=== PATIENT | male | born 1975 | race Caucasian/White ===

== ENCOUNTER 2017-03-10 21:33 | Emergency (ER) | payer OTHER ==
[2017-03-10 22:49] VITALS: BP 141/87
[2017-03-10] MEDS ORDERED: HYDROmorphone 1 MG/ML Syringe IM ONE (23:27)
[2017-03-10] MEDS ORDERED: Alum Hydrox/Mag Hydrox/Simeth 15 ML, Lidocaine 2% 15 ML PO ONE ×2 (23:29)
--- NOTE | 2017-03-10 23:30 | EDM.PDOC ---
ED HPI GENERAL MEDICAL PROBLEM - General Chief Complaint: Abdominal Pain Stated Complaint: STOMACH PAIN 1 WEEK/POSSIBLE FEVER Time Seen by Provider: 03/10/17 23:22 Source of Information: Reports: Patient, RN Notes Reviewed History Limitations: Reports: No Limitations - History of Present Illness INITIAL COMMENTS - FREE TEXT/NARRATIVE: 41-year-old gentleman presents emergency department day complaint of epigastric pain, he states is been ongoing for the last week or so however the last 3 days have been worse, he states the pain gets significantly worse with food he also develops some diarrhea after eating denies any blood in the stool no fevers nausea vomiting no history of abdominal surgeries Upper Abdomen Pain Score (Numeric/FACES): 6 - Related Data Allergies Allergy/AdvReac Type Severity Reaction Status Date / Time No Known Allergies Allergy Verified 03/10/17 23:10 Home Meds: Home Meds Acetaminophen/Caffeine [Excedrin Tension Headache] 1 tab PO ASDIRECTED PRN 03/10 [History] Past Medical History Gastrointestinal History: Reports: Other (See Below) Other Gastrointestinal History: similar symptoms 1 mo ago Musculoskeletal History: Reports: Fracture Other Musculoskeletal History: foot Neurological History: Reports: Migraines - Infectious Disease History Infectious Disease History: Reports: Chicken Pox - Past Surgical History GI Surgical History: Reports: None Social & Family History - Tobacco Use Smoking Status *Q: Never Smoker - Caffeine Use Caffeine Use: Reports: Coffee, Energy Drinks, Soda - Recreational Drug Use Recreational Drug Use: No ED ROS GENERAL - Review of Systems Review Of Systems: See Below Constitutional: Reports: No Symptoms Respiratory: Reports: No Symptoms Cardiovascular: Reports: No Symptoms GI/Abdominal: Reports: Abdominal Pain, Diarrhea. Denies: Nausea, Vomiting : Reports: No Symptoms Musculoskeletal: Reports: No Symptoms Skin: Reports: No Symptoms ED EXAM, GI/ABD - Physical Exam Exam: See Below Text/Narrative:: General: Male, not in any distress, alert and oriented x3 HEENT: head is atraumatic normocephalic, eyes pupils equal round reactive to light, sclera clear no conjunctivitis appreciated. Ears tympanic membranes clear and todd landmarks and light reflex are present bilaterally canals are clear. Nose no septal deviation, nares are clear, no blood present. Mouth mucosa is moist and pink no erythema or exudate noted in soft palate, tongue is midline uvula is midline, dentition is intact. Neck: Supple no thyromegaly no tracheal deviation. Nodes: Cervical nodes subclavicular nodes nontender no palpable lymphadenopathy noted. Lungs: clear to auscultation bilaterally with symmetrical respirations, no adventitious noise appreciated. CV: Regular rate and rhythm S1 and S2 appreciated no murmurs rubs or gallops noted. Abdomen: Soft, tender to mild palpation in epigastric region, no palpable masses or organomegaly appreciated, no distention no guarding bowel sounds are present, . Neuro: Cranial nerves II through XII grossly intact Skin: Warm and dry, intact Extremities: No lower extremity edema appreciated, Course - Vital Signs Last Recorded V/S: Last Vital Signs Temp 99.7 F 03/10/17 23:07 Pulse 71 03/10/17 23:07 Resp 16 03/10/17 23:07 BP 141/87 H 03/10/17 23:07 Pulse Ox 97 03/10/17 23:07 - Orders/Labs/Meds Orders: Active Orders 24 hr Category Date Time Status Abdomen Ltd [US] Urgent Exams 03/10/17 23:27 Taken Labs: Laboratory Tests 03/10/17 03/10/17 03/10/17 Range/Units 00:04 23:50 23:50 WBC 11.1 H (4.5-11.0) K/uL RBC 5.75 (4.30-5.90) M/uL Hgb 17.5 H (12.0-15.0) g/dL Hct 47.6 (40.0-54.0) % MCV 83 (80-98) fL MCH 30 (27-31) pg MCHC 37 H (32-36) % Plt Count (150-400) K/uL Neut % (Auto) 77 H (36-66) % Lymph % (Auto) 15 L (24-44) % [place] % (Auto) 6 (2-6) % Eos % (Auto) 1 L (2-4) % Baso % (Auto) 0 (0-1) % Sodium 136 L (140-148) mmol/L Potassium 3.7 (3.6-5.2) mmol/L Chloride 100 (100-108) mmol/L Carbon Dioxide 26 (21-32) mmol/L Anion Gap 13.7 (5.0-14.0) mmol/L BUN 9 (7-18) mg/dL Creatinine 1.0 (0.8-1.3) mg/dL Est Cr Clr Drug Dosing 101.39 mL/min Estimated GFR (MDRD) > 60 (>60) Glucose 123 H (74-106) mg/dL Calcium 9.3 (8.5-10.1) mg/dL Total Bilirubin 0.7 (0.2-1.0) mg/dL AST 20 (15-37) U/L ALT 26 (12-78) U/L Alkaline Phosphatase 83 (46-116) U/L Troponin I < 0.017 (0.000-0.056) ng/mL Total Protein 8.7 H (6.4-8.2) g/dL Albumin 4.2 (3.4-5.0) g/dL Globulin 4.5 H (2.3-3.5) g/dL Albumin/Globulin Ratio 0.9 L (1.2-2.2) Lipase 264 (73-393) U/L Urine Color Yellow Urine Appearance Clear Urine pH 6.5 (4.5-8.0) Ur Specific [place] 1.015 (1.008-1.030) Urine Protein Negative (NEGATIVE) mg/dL Urine Glucose (UA) Normal (NEGATIVE) mg/dL Urine Ketones 15 H (NEGATIVE) mg/dL Urine Occult Blood Negative (NEGATIVE) Urine Nitrite Negative (NEGAITVE) Urine Bilirubin Negative (NEGATIVE) Urine Urobilinogen Normal (NORMAL) mg/dL Ur Leukocyte Esterase Negative (NEGATIVE) Urine RBC 0-5 (0-5) Urine WBC 0-5 (0-5) Ur Epithelial Cells Rare Amorphous Sediment Not seen Urine Bacteria Few Urine Mucus Not seen Meds: Medications Discontinued Medications Generic Name Dose Route Start Last Admin Trade Name Freq PRN Reason Stop Dose Admin Al Hydroxide/Mg Hydroxide 15 0 ml 03/10/17 23:29 03/10/17 23:40 ml/ Lidocaine HCl 15 ml PO 03/10/17 23:30 30 ml ONETIME ONE Administration Hydromorphone HCl 1 mg 03/10/17 23:27 03/10/17 23:42 Dilaudid IM 03/10/17 23:28 1 mg ONETIME ONE Administration Departure - Departure Time of Disposition: 01:14 Disposition: Home, Self-Care 01 Condition: Good Clinical Impression: Cholelithiasis Qualifiers: Cholelithiasis location: gallbladder Cholecystitis presence: without cholecystitis Biliary obstruction: without biliary obstruction Qualified Code(s) : K80.20 - Calculus of gallbladder without cholecystitis without obstruction - Discharge Information Forms: ED Department Discharge Additional Instructions: Use hydrocodone as needed for pain control, please call the clinic in the morning for an appointment with general surgery - My Orders Last 24 Hours: My Active Orders 03/10/17 23:27 Abdomen Ltd [US] Urgent - Assessment/Plan Last 24 Hours: My Active Orders 03/10/17 23:27 Abdomen Ltd [US] Urgent Plan: Assessment Acuity = acute Site and laterality = cholelithiasis Etiology = probably diet related Manifestations = epigastric pain Location of injury = Home Lab values = CBC within normal limits sodium low at 136 consistent hyponatremia remainder of metabolic panel is within normal limits ultrasound demonstrates cholelithiasis and fatty infiltration of liver Plan I did review lab work and ultrasound results with him to set him up for the consult with general surgery tomorrow or further evaluation, hydrocodone total # 10 provided for pain, recommend bland diet Patient was in agreement with the plan all questions were answered, they were instructed to return to the emergency department or call for worsening symptoms. This note was dictated using [employer] voice recognition software please call with any questions.
== END 2017-03-11 01:26 | disposition home or self-care (01) ==
LOC: JP.ED 21:33
DX: K80.20 Calculus of gallbladder without cholecystitis without obstruction (principal)
CPT/HCPCS: 36415; 76705; 80053; 81001; 83690; 84484; 85025; 96372; 99284; A9270; J1170

== ENCOUNTER 2017-03-20 10:35 | Day surgery (SDC) | payer OTHER ==
[~2017-03-20 10:35] MED LIST: Bupivacaine 0.5% 50 ML MDV ONE; Lidocaine 1% with EPINEPHrine 1:100,000 50 ML MDV ONE
[2017-03-20] MEDS: Dextrose 5%-Lactated Ringers 1,000 ML IV SCH ×2 (11:19→16:11)
[2017-03-20] MEDS ORDERED: Rocuronium 50 MG/5 ML Vial ONE (12:54)
[2017-03-20] MEDS ORDERED: Propofol 200 MG/20 ML SDV ONE (12:54)
[2017-03-20] MEDS ORDERED: Dexamethasone 4 MG/ML SDV ONE (12:54)
[2017-03-20] MEDS ORDERED: Ondansetron 4 MG/2 ML SDV ONE (12:54)
[2017-03-20] MEDS ORDERED: Succinylcholine 200 MG/10 ML MDV ONE (12:54)
[2017-03-20] MEDS ORDERED: Neostigmine Methylsulfate 1 MG/ML 5 ML Syringe ONE (12:54)
[2017-03-20] MEDS ORDERED: Glycopyrrolate 0.2 MG/ML 5 ML MDV ONE (12:54)
[2017-03-20] MEDS ORDERED: Naloxone 0.4 MG/ML SDV IVPUSH PRN (13:06)
[2017-03-20] MEDS ORDERED: HYDROmorphone/Normal Saline 15 MG/30 ML PCA IV PRN (13:06)
[2017-03-20] MEDS ORDERED: cefOXitin 2 GM in Sodium Chloride 0.9% 50 ML IV ONE (13:15)
[2017-03-20] MEDS ORDERED: hydrOXYzine HCl 100 MG/2 ML SDV IM PRN (14:49)
[2017-03-20] MEDS ORDERED: Ondansetron 4 MG/2 ML SDV IVPUSH PRN (14:49)
[2017-03-20] MEDS: Docusate Sodium 100 MG Cap PO SCH (22:09)
[2017-03-21] MEDS: Dextrose 5%-Lactated Ringers 1,000 ML IV SCH (02:12)
[2017-03-21 05:14] VITALS: BP 110/82
[2017-03-21] MEDS ORDERED: Acetaminophen/HYDROcodone 325-5 MG Tab PO PRN (06:43)
--- NOTE | 2017-03-21 06:54 | PCM.DCSUM1 ---
Discharge Summary - Hospital Course Free Text/Narrative:: This 41 year old white male presented to the ER last week complaining of abdominal pain. He was found to have cholelithiasis and was scheduled for a laparoscopic cholecystectomy on March 20, 2017. His LFT's were normal pre- operatively. He received Mefoxin 2 gms IV pre-operatively. He had multiple stones in his gall bladder and a large cystic duct requiring a stapler to close. He doing doing well post operatively and is ready for discharge. His LIFT's are elevated with a total bilirubin of 1.3 and a d. bili of 0.51. We will follow this. He will be discharged to home today in good condition with LFT check tomorrow. Brief History: See above narrative. - Discharge Data Discharge Date: 03/21/17 Discharge Disposition: Home, Self-Care 01 Condition: Good - Patient Summary/Data Operative Procedure(s) Performed: See above narrative. Consults: Consultations 03/20/17 14:49 Respiratory Care Assess and Treatment [CONS] Routine Comment: Physician Instructions: Hospital Course: See above narrative. - Patient Instructions Diet: Usual Diet as Tolerated Activity: No Strenuous Activities (For two weeks. ) Driving: Do Not Drive Showering/Bathing: May Shower, No Tub Bathing/Swimming Notify Provider of: Fever, Increased Pain, Swelling and Redness, Drainage, Nausea and/or Vomiting - Discharge Plan Prescriptions/Med Rec: Hydrocodone/Acetaminophen [Hydrocodon-Acetaminophen 5-325] 1 - 2 each PO Q6H PRN #30 tablet PRN Reason: Pain Home Medications: Home Meds Docusate Sodium [Colace] 100 mg PO BID cap 03/21/17 [Rx] Hydrocodone/Acetaminophen [Hydrocodon-Acetaminophen 5-325] 1 - 2 each PO Q6H PRN #30 tablet 03/21/17 [Rx] Referrals: Bhavik Aj MD [Physician] - (Wednesday March 22, 2017 for liver profile. ) - Discharge Summary/Plan Comment DC Time >30 min.: Yes Discharge Summary/Plan Comment: See above narrative. - Patient Data Vitals - Most Recent: Last Vital Signs Temp 98.6 F 03/21/17 05:12 Pulse 97 03/21/17 05:12 Resp 18 03/21/17 05:12 BP 110/82 03/21/17 05:12 Pulse Ox 94 L 03/21/17 06:25 Weight - Most Recent: 203 lb 7.787 oz I&O - Last 24 hours: Intake & Output 03/20/17 03/20/17 03/21/17 14:59 22:59 06:59 Intake Total 2589 2140 Output Total 625 Balance 2589 1515 Lab Results - Last 24 hrs: Laboratory Results - last 24 hr 03/20/17 03/21/17 03/21/17 Range/Units 17:58 04:30 04:30 WBC 12.1 H 17.0 H (4.5-11.0) K/uL RBC 5.27 4.97 (4.30-5.90) M/uL Hgb 15.4 H D 15.0 (12.0-15.0) g/dL Hct 46.3 44.1 (40.0-54.0) % MCV 88 89 (80-98) fL MCH 29 30 (27-31) pg MCHC 33 34 (32-36) % Plt Count 221 213 (150-400) K/uL Total Bilirubin 1.3 H D (0.2-1.0) mg/dL Direct Bilirubin 0.51 H (0.0-0.2) mg/dL Indirect Bilirubin 0.79 AST 63 H D (15-37) U/L ALT 260 H (12-78) U/L Alkaline Phosphatase 193 H D (46-116) U/L Total Protein 7.3 (6.4-8.2) g/dL Albumin 3.4 (3.4-5.0) g/dL Globulin 3.9 H (2.3-3.5) g/dL Albumin/Globulin Ratio 0.9 L (1.2-2.2) MASOUD Results - Last 24 hrs: Microbiology 03/20/17 15:05 Gram Stain - Final Gallbladder Fluid - Bile Med Orders - Current: Current Medications Hydrocodone Bitart/Acetaminophen ([place] 325-5 Mg) 1 - 2 tab PO Q4H PRN PRN Reason: Abdominal Pain Docusate Sodium (Colace) 100 mg PO BID TITA Last Admin: 03/20/17 22:09 Dose: 100 mg Hydromorphone HCl (Dilaudid Dry Chain Operator 15 Mg In Ns 30 Ml) 0 mg IV ASDIRECTED PRN; Protocol PRN Reason: Pain Last Admin: 03/20/17 14:02 Dose: 15 mg Hydroxyzine HCl (Vistaril) 50 mg IM Q4H PRN PRN Reason: Nausea Dextrose/Lactated Ringer's (Dextrose 5%-Lactated Ringers) 1,000 mls @ 100 mls/ hr IV ASDIRECTED [facility] Last Admin: 03/21/17 02:12 Dose: 100 mls/hr Naloxone HCl (Narcan) 0.4 mg IVPUSH Q2M PRN PRN Reason: Respiratory Distress Ondansetron HCl (Zofran) 4 mg IVPUSH Q6H PRN PRN Reason: Nausea/Vomiting Discontinued Medications Bupivacaine HCl (Marcaine 0.5%) Confirm Administered Dose 50 ml .ROUTE .STK-MED ONE Stop: 03/20/17 07:00 Last Admin: 03/20/17 14:27 Dose: 20 ml Dexamethasone (Dexamethasone) Confirm Administered Dose 4 mg .ROUTE .STK-MED ONE Stop: 03/20/17 12:55 Fentanyl Citrate (Fentanyl 0.05 Mg/Ml Vial) Confirm Administered Dose 50 mcg .ROUTE .STK-MED ONE Stop: 03/20/17 12:55 Glycopyrrolate (Robinul) Confirm Administered Dose 1 mg .ROUTE .STK-MED ONE Stop: 03/20/17 12:55 Cefoxitin Sodium 2 gm/ Sodium (Chloride) 50 mls @ 100 mls/hr IV ONETIME ONE Stop: 03/20/17 13:44 Last Admin: 03/20/17 13:12 Dose: 100 mls/hr Lidocaine/Epinephrine (Xylocaine 1% With Epinephrine 1:100,000) Confirm Administered Dose 50 ml .ROUTE .STK-MED ONE Stop: 03/20/17 07:00 Last Admin: 03/20/17 14:27 Dose: 20 ml Neostigmine Methylsulfate (Neostigmine) Confirm Administered Dose 5 mg .ROUTE .STK-MED ONE Stop: 03/20/17 12:55 Ondansetron HCl (Zofran) Confirm Administered Dose 4 mg .ROUTE .STK-MED ONE Stop: 03/20/17 12:55 Propofol (Diprivan 20 Ml) Confirm Administered Dose 200 mg .ROUTE .STK-MED ONE Stop: 03/20/17 12:55 Rocuronium Basalt (Zemuron) Confirm Administered Dose 50 mg .ROUTE .STK-MED ONE Stop: 03/20/17 12:55 Succinylcholine Chloride (Quelicin) Confirm Administered Dose 200 mg .ROUTE .STK -MED ONE Stop: 03/20/17 12:55 *Q Meaningful Use (DIS) - VTE *Q VTE Criteria *Q: - Stroke *Q Stroke Criteria *Q: - AMI *Q AMI Criteria *Q:
[2017-03-21] MEDS: Docusate Sodium 100 MG Cap PO SCH (08:17)
--- NOTE | 2017-03-21 08:38 | OR ---
DATE OF PROCEDURE: 03/20/2017 PREOPERATIVE DIAGNOSIS: Chronic cholecystitis with cholelithiasis. POSTOPERATIVE DIAGNOSIS: Chronic cholecystitis with cholelithiasis. PROCEDURE: Laparoscopic cholecystectomy. ANESTHESIA: General endotracheal. INDICATION: This 41-year-old white male presented to the emergency room last week with upper abdominal pain radiating into his back. He had some nausea. He was found on ultrasound to have cholelithiasis. There was no ductal dilatation. Liver functions were unremarkable save for a slightly elevated total protein at 4.5. He is admitted today for a laparoscopic cholecystectomy. He says he has been feeling fine, no pain in the last several days. I counseled him for a laparoscopic cholecystectomy including risks and alternatives, and he gave his informed consent to proceed. He has had no prior abdominal surgery. DESCRIPTION OF PROCEDURE: After adequate general endotracheal anesthesia was obtained, the patient's abdomen was prepped and draped in the usual sterile fashion. Time-out was held. The leg compression stockings were in place and used during the entire procedure. An infraumbilical semicircular incision was made. Under direct vision, a 12 mm port was introduced into the abdomen through this incision using the Optiview technique. The camera was introduced into the abdomen and the abdomen was insufflated to a pressure of 15 mmHg with carbon dioxide. No evidence of intraabdominal injury was seen. Under direct vision, a 12 mm port was placed in the epigastrium and a 5 mm port was placed in the right lower quadrant. The gallbladder was examined and was noted to be a grayish white color consistent with chronic cholecystitis. There was some adhesions to it which were dissected free. The cystic duct and arteries were dissected free. The cystic duct was noted to be too large to place clips across it. It was then divided with the endoscopic LUIS F using a white load. The cystic artery was clipped once distally and a couple of times proximally and divided between clips. The gallbladder was then dissected free from the gallbladder bed using Bovie electrocautery. The gallbladder was placed in a sample retrieval bag and elevated up through the anterior abdominal wall via the epigastric port site. The epigastric port was reintroduced back into the abdomen. The gallbladder bed was irrigated and cauterized to achieve hemostasis. There was no obvious bleeding but a slight ooze, we decided to place Surgicel over the site. Surgicel was then placed in the gallbladder fossa , all of them looked well. The epigastric fascial defect was closed with 0 Vicryl suture using the fascial closure device. The infraumbilical port was removed with a figure-of- eight stitch of 0 Vicryl used to close this fascial defect. We evacuated as much CO2 from the abdomen as we could via the 5 mm port site in the right lower quadrant and then this port was removed. Lidocaine 1% with epinephrine in a 50:50 mix with 0.5% Marcaine was infiltrated about all incisions. The skin incisions were then closed with subcuticular stitches of 4- 0 Vicryl. Dermabond was applied. The anesthesia was reversed. He was extubated and brought to recovery room in good condition. Bhavik Aj MD /[id number] MTDD
== END 2017-03-21 10:00 | disposition home or self-care (01) ==
LOC: JP.SDS 10:35 → JP.MS 15:20 → JP.SDS 03-21 10:00
PROVIDERS: ATTEND Surgery
DX: K80.10 Calculus of gallbladder with chronic cholecystitis without obstruction (principal)
CPT/HCPCS: 36415; 47562; 80076; 85027; 87070; 87075; 87205; 88304; 94762; A9270; J0330; J0694; J1100; J1170; J2405; J2704; J3010; J7042; J7050

== ENCOUNTER 2023-07-30 11:28 | Emergency (ER) | payer OTHER ==
[2023-07-30 11:51] VITALS: BP 135/91; PULSE 98
[2023-07-30] MEDS ORDERED: Sodium Chloride 0.9% 10 ML Syringe FLUSH PRN (12:18)
[2023-07-30] MEDS ORDERED: Sodium Chloride 0.9% 1,000 ML IV ONE (12:18)
[2023-07-30 12:40] LABS: BASOPHILS ABSOLUTE AUTO 0.05 K/uL (0.00-0.10); BASOPHILS PERCENT AUTO 0.6 % (0.1-1.3); EOSINOPHILS ABSOLUTE AUTO 0.24 K/uL (0.00-0.40); EOSINOPHILS PERCENT AUTO 2.7 % (0.0-5.4); HEMATOCRIT 49.7 % (38.4-49.7); IMMATURE GRAN ABSOLUTE AUTO 0.04 K/uL (0.00-0.23); IMMATURE GRAN PERCENT AUTO 0.5 % (0.0-0.7); LYMPHOCYTES ABSOLUTE AUTO 2.73 K/uL (0.8-3.3); LYMPHOCYTES PERCENT AUTO 31.1 % (11.4-47.7); MEAN CORPUSCULAR HEMOGLOBIN 30.8 pg (31.6-35.5); MEAN CORPUSCULAR HGB CONC 36.2 g/dL (31.6-35.5); MEAN CORPUSCULAR VOLUME 85.1 fL (81.4-99.0); MONOCYTES ABSOLUTE AUTO 0.47 K/uL (0.20-0.90); MONOCYTES PERCENT AUTO 5.4 % (3.3-12.6); NEUTROPHILS ABSOLUTE AUTO 5.25 K/uL (1.0-7.6); NEUTROPHILS PERCENT AUTO 59.7 % (40.0-78.1); PLATELET COUNT,PLT 208 K/uL (130-375); RED BLOOD CELL COUNT 5.84 M/uL (4.14-5.76); WHITE BLOOD CELL COUNT,WBC 8.8 K/uL (3.2-11.0)
[2023-07-30 12:53] LABS: CALCIUM 9.1 mg/dL (8.5-10.1); CREATININE 0.9 mg/dL (0.8-1.3); EST CRCL DRUG DOSING (CG) 104.77 mL/min
[2023-07-30 13:19] LABS: HEMOGLOBIN A1C 9.4 % (4.5-6.2)
== END 2023-07-30 13:59 | disposition home or self-care (01) ==
LOC: JP.ED 11:28
DX: E13.9 Other specified diabetes mellitus without complications (principal); Z79.4 Long term (current) use of insulin
CPT/HCPCS: 36415; 80048; 83036; 85025; 96361; 96374; 99284; J3360; J3490; J7030